=== PATIENT | female | born 1950 | race Caucasian/White ===

== ENCOUNTER 2017-09-01 13:01 | Emergency (ER) | payer MEDICARE, OTHER ==
[~2017-09-01] VITALS: Ht 167.6 cm; Wt 85.0 kg
[2017-09-01 13:05] VITALS: BP 148/70; PULSE 104; RESP 16; TEMP 97.9; O2SAT 99
--- NOTE | 2017-09-01 14:12 | RADRPT ---
EXAM DATE/TIME: 09/01/2017 13:48 [place] COMPARISON: No previous studies available for comparison. INDICATIONS : Right leg pain. MEDICAL HISTORY : Hypertension. Arthritis. Diabetes. Adrenal gland insufficiency. SURGICAL HISTORY : Cholecystectomy. Right breast lumpectomy. Bilateral trigger finger surgery. Lung biopsy. ENCOUNTER: Initial ACUITY: 1 day PAIN SCORE: 0/10 LOCATION: Right leg. TECHNIQUE: Venous ultrasound of the leg was performed from the inguinal ligament to the proximal calf. Real-varsha e, color Doppler and spectral tracing, compression and augmentation techniques were used. FINDINGS: There is normal compressibility of the deep venous system from the inguinal region to the proximal ca lf. No echogenic clot is seen in the lumen of the common femoral, femoral, popliteal, and posterior tibial veins. There is a normal response of the venous system to proximal and distal augmentation an d respiration. CONCLUSION: Normal examination. Evan Sawyer MD on September 01, 2017 at 14:10 Board Certified Radiologist. This report was verified electronically.
--- NOTE | 2017-09-01 14:21 | PD ---
HPI Chief Complaint: Musculoskeletal Complaint Time Seen by Provider: 13:19 Travel History International Travel<30 days: No Contact w/Intl Traveler<30days: No Traveled to known affect area: No History of Present Illness HPI Patient is a 67 year old female who comes in complaining of numbness to her right foot, and being unable to move it. She had an injection done to her leg at 10AM and says she was fine, until she went to [facility] and was walking around. She says that suddenly she was unable to move her foot and had to drag it with her. She says she had no symptoms prior to the injection. She denies fever or chills. She denies an injury to the area. She denies any back pain. PFSH Past Medical History Arthritis: Yes Autoimmune Disease: Yes (SARCOIDOSIS) Blood Disorders: No Heart Rhythm Problems: No Cancer: No Cardiovascular Problems: Yes High Cholesterol: No Chemotherapy: No Chest Pain: No Congestive Heart Failure: No Diabetes: Yes Patient Takes Glucophage: Yes Endocrine: Yes (adrenal insuficiency) Gastrointestinal Disorders: Yes GERD: No Genitourinary: No Hepatitis: No Hiatal Hernia: No Hypertension: Yes Immune Disorder: Yes Musculoskeletal: Yes Neurologic: No Psychiatric: No Reproductive: No Respiratory: No Myocardial Infarction: No Radiation Therapy: No Thyroid Disease: No Ulcer: No Tetanus Vaccination: > 5 Years ?: Not Past Surgical History AICD: No Appendectomy: No Arteriovenous Shunt: No Cholecystectomy: Yes Insulin Pump: No Joint Replacement: No Pacemaker: No Other Surgery: Yes (right breast lumpectomy, trigger finger bilateral, lung biopsy) Social History Alcohol Use: No Tobacco Use: No Substance Use: No Allergies-Medications (Allergen,Severity, Reaction): Coded Allergies: Sulfa (Sulfonamide Antibiotics) (Unverified Allergy, Severe, 09/01/17) Reported Meds & Prescriptions Reported Meds & Active Scripts Active Review of Systems Except as stated in HPI: all other systems reviewed are Neg General / Constitutional: No: Fever, Chills HENT: No: Headaches, Lightheadedness Cardiovascular: No: Chest Pain or Discomfort Respiratory: No: Shortness of Breath Gastrointestinal: No: Nausea, Vomiting, Abdominal Pain Musculoskeletal: No: Pain Neurologic: Positive: Sensory Disturbance Psychiatric: No: Anxiety, Depression Physical Exam Narrative GENERAL: Awake and alert, in no acute distress. SKIN: Focused skin assessment warm/dry. HEAD: Atraumatic. Normocephalic. EYES: Pupils equal and round. No scleral icterus. ENT: Mucous membranes pink and moist. NECK: Trachea midline. No JVD. CARDIOVASCULAR: Regular rate and rhythm. No murmur appreciated. RESPIRATORY: No accessory muscle use. Clear to auscultation. Breath sounds equal bilaterally. GASTROINTESTINAL: Abdomen soft, non-tender, nondistended. MUSCULOSKELETAL: No obvious deformities. No clubbing. No cyanosis. No edema. NEUROLOGICAL: Awake and alert. No obvious cranial nerve deficits. Motor grossly within normal limits. Normal speech. numbness to the medial side of the right foot. Unable to plantar flex the right foot. Pedal pulses intact. PSYCHIATRIC: Appropriate mood and affect; insight and judgment normal. Data Data Last Documented VS Vital Signs Date Time Temp Pulse Resp B/P (MAP) Pulse Ox O2 Delivery O2 Flow Rate FiO2 09/01/17 13:05 97.9 104 16 148/70 (96) 99 Orders Orders Complete Blood Count With Diff (09/01/17 13:32) Comprehensive Metabolic Panel (09/01/17 13:32) Iv Access Insert/Monitor (09/01/17 13:32) Us Leg Venous Doppler (09/01/17 ) [employer] Request For Service (09/01/17 15:23) Splint Or Brace Apply/Monitor (09/01/17 15:23) Labs Laboratory Tests Test 09/01/17 14:10 White Blood Count 6.6 TH/MM3 Red Blood Count 4.62 MIL/MM3 Hemoglobin 13.4 GM/DL Hematocrit 40.0 % Mean Corpuscular Volume 86.7 FL Mean Corpuscular Hemoglobin 28.9 PG Mean Corpuscular Hemoglobin Concent 33.4 % Red Cell Distribution Width 14.0 % Platelet Count 233 TH/MM3 Mean Platelet Volume 8.7 FL Neutrophils (%) (Auto) 65.4 % Lymphocytes (%) (Auto) 24.8 % Monocytes (%) (Auto) 6.1 % Eosinophils (%) (Auto) 3.0 % Basophils (%) (Auto) 0.7 % Neutrophils # (Auto) 4.3 TH/MM3 Lymphocytes # (Auto) 1.6 TH/MM3 Monocytes # (Auto) 0.4 TH/MM3 Eosinophils # (Auto) 0.2 TH/MM3 Basophils # (Auto) 0.0 TH/MM3 CBC Comment DIFF FINAL Differential Comment Blood Urea Nitrogen 13 MG/DL Creatinine 0.99 MG/DL Random Glucose 267 MG/DL Total Protein 7.1 GM/DL Albumin 3.6 GM/DL Calcium Level 9.0 MG/DL Alkaline Phosphatase 83 U/L Aspartate Amino Transf (AST/SGOT) 13 U/L Alanine Aminotransferase (ALT/SGPT) 23 U/L Total Bilirubin 0.4 MG/DL Sodium Level 137 MEQ/L Potassium Level 3.9 MEQ/L Chloride Level 104 MEQ/L Carbon Dioxide Level 24.4 MEQ/L Anion Gap 9 MEQ/L Estimat Glomerular Filtration Rate 56 ML/MIN MDM Medical Decision Making Medical Screen Exam Complete: Yes Emergency Medical Condition: Yes Medical Record Reviewed: Yes Differential Diagnosis peroneal nerve injury vs electrolyte abnormalities vs DVT Narrative Course Patient is a 67 year old female who comes in complaining of inability to move her foot. Exam shows inability to dorsiflex her foot. US performed, no DVT seen. Labs sent show no acute abnormalities. Patient had an injection to the right lateral side of her knee with bupivacaine. I believe the nerve has been numbed or injured, which is responsible for her symptoms. I spoke with Dr. Umaña of neurology who suggest an AFO brace and follow up in the office. Patient given the brace and information for follow up. Advised to return as needed for any worsening symptoms. Diagnosis Primary Impression: Peroneal nerve injury Qualified Codes: S84.11XA - Injury of peroneal nerve at lower leg level, right leg, initial encounter Referrals: Valdemar Umaña MD call for appointment Patient Instructions: Foot Drop (ED), General Instructions Additional Instructions: Wear your brace to help with foot drop. Follow up with neurology this week. Call your doctor Monday regarding this. Return to the ED as needed for any worsening symptoms. Disposition: 01 DISCHARGE HOME Condition: Stable Cherry Ta MD Sep 01, 2017 14:21
[2017-09-01 14:26] LABS: AUTOMATED NEUTROPHIL # 4.3 TH/MM3 (1.8-7.7); BASOPHIL % 0.7 % (0.0-2.0); EOSINOPHIL # 0.2 TH/MM3 (0-0.4); HEMO FLAGS DIFF FINAL; LYMPH % 24.8 % (9.0-44.0); LYMPHOCYTE # 1.6 TH/MM3 (1.0-4.8); MEAN CELL VOLUME 86.7 FL (80.0-100.0); MEAN CORPUSCULAR HEMOGLOBIN 28.9 PG (27.0-34.0); MEAN CORPUSCULAR HGB CONC 33.4 % (32.0-36.0); MONO % 6.1 % (0.0-8.0); NEUT % 65.4 % (16.0-70.0); PLATELET COUNT 233 TH/MM3 (150-450); RED BLOOD COUNT 4.62 MIL/MM3 (4.00-5.30); WHITE BLOOD COUNT 6.6 TH/MM3 (4.0-11.0)
[2017-09-01 14:40] LABS: ALT (GPT) 23 U/L (10-53); ANION GAP 9 MEQ/L (5-15); AST (GOT) 13 U/L (15-37); BICARBONATE 24.4 MEQ/L (21.0-32.0); BLOOD UREA NITROGEN 13 MG/DL (7-18); CHLORIDE 104 MEQ/L (98-107); GLOMERULAR FILTRATION RATE 56 ML/MIN (>89); POTASSIUM 3.9 MEQ/L (3.5-5.1); SODIUM (NA) 137 MEQ/L (136-145)
[2017-09-01 14:42] LABS: ALKALINE PHOSPHATASE 83 U/L (45-117); TOTAL BILIRUBIN ADULT 0.4 MG/DL (0.2-1.0)
[2017-09-14] MEDS ORDERED: ASCO100016 PO (11:03)
[2017-09-14] MEDS ORDERED: ALEV220T14 PO (11:03)
[2017-09-14] MEDS ORDERED: OMEP40CA2 PO (11:03)
[2017-09-14] MEDS ORDERED: MAGN500T2 PO (11:03)
[2017-09-14] MEDS ORDERED: BUPR150CR PO (11:03)
[2017-09-14] MEDS ORDERED: HYDR12.57 PO (11:03)
[2017-09-14] MEDS ORDERED: VITA10002 PO (11:03)
[2017-09-14] MEDS ORDERED: METF1000 PO (11:03)
[2017-09-14] MEDS ORDERED: VITA100064 PO (11:03)
[2017-09-14] MEDS ORDERED: POTA99TA4 PO (11:03)
[2017-09-14] MEDS ORDERED: ATOR10TA15 PO (11:03)
[2017-09-14] MEDS ORDERED: LANTUS2P SQ (11:03)
[2017-09-14] MEDS ORDERED: AMLO5TAB2 PO (11:03)
[2017-09-14] MEDS ORDERED: ASPI1TAB91 PO (11:03)
[2017-09-14] MEDS ORDERED: MONT10TA4 PO (11:03)
[2017-09-14] MEDS ORDERED: NOVOLOGP2 SQ (11:03)
[2017-09-14] MEDS ORDERED: ALLE10TA PO (11:03)
[2017-09-14] MEDS ORDERED: EXENINJ SQ (11:03)
[2017-09-14] MEDS ORDERED: FISH100020 PO (11:03)
[2017-09-14] MEDS ORDERED: GABA300C5 PO (11:03)
[2017-09-14] MEDS ORDERED: LOSA100T PO (11:03)
== END 2017-09-01 17:14 | disposition home or self-care (01) ==
LOC: NEPD 13:01
DX: S84.11XA Injury of peroneal nerve at lower leg level, right leg, initial encounter (principal); E11.9 Type 2 diabetes mellitus without complications; I10 Essential (primary) hypertension; Z79.84 Long term (current) use of oral hypoglycemic drugs; Z87.39 Personal history of other diseases of the musculoskeletal system and connective tissue; Z86.79 Personal history of other diseases of the circulatory system; Z87.19 Personal history of other diseases of the digestive system; Z86.2 Personal history of diseases of the blood and blood-forming organs and certain disorders involving the immune mechanism; X58.XXXA Exposure to other specified factors, initial encounter
CPT/HCPCS: 80053; 85025; 93971; 99284; L1960